=== PATIENT | male | born 2000 | race Caucasian/White ===

== ENCOUNTER 2022-03-26 16:10 | Day surgery (SDC) | payer SELFPAY ==
[~2022-03-26] VITALS: Ht 187 cm; Wt 81.6 kg
[2022-03-26] VITALS (8 sets, daily range): BP systolic 105–132; BP diastolic 63–84
[~2022-03-26 16:10] MED LIST: METH5SU. PO
[2022-03-26 16:58] LABS: CLARITY,URINE CLEAR; COLOR,URINE YELLOW; GLUCOSE, URINE (UA) NEGATIVE (NEGATIVE); KETONES,URINE 3+ (NEGATIVE); LEUKOCYTE ESTERASE ,URINE NEGATIVE (NEGATIVE); NITRITE,URINE NEGATIVE (NEGATIVE); PROTEIN,URINE 1+ (NEGATIVE)
[2022-03-26] MEDS ORDERED: NS IV 1000 ML 1,000 ML IV STA (17:17)
--- NOTE | 2022-03-26 17:22 | ED Abdominal Pain ---
General Chief Complaint: Abdominal/GI Problems Stated Complaint: RT SIDE ABD PAIN,NAUSEA,VOMITING Nursing Triage Note: PT AMB TO ED BY POV WITH C/O RLQ PAIN, N/V SINCE 010 TODAY. REPORTS HE HAS NOT BEEN ABLE TO KEEP ANYTHING DOWN TODAY. LAST BM THIS MORNING, NORMAL FOR PT. DENIES ANY DIFFICULTY URINATING OR FEVER. Source of Information: Patient Exam Limitations: No Limitations (SUZAN ADAMSON MD) History of Present Illness Date Seen by Provider: Mar 26, 2022 Time Seen by Provider: 17:12 Initial Comments Patient is a 21-year-old male who presents to the emergency department today with a chief complaint of right lower quadrant abdominal pain. Patient woke up with the pain this morning. It has gotten worse throughout the day. He feels a little bloated and gassy. He has had repeated bouts of nausea and vomiting. He has not had anything to eat or drink since yesterday. He does not drink alcohol. He states walking may intensify the pain just a little bit. He has not had a fever that he knows of. No diarrhea, last bowel movement was this morning and normal, nonblack nonbloody. No urinary complaints other than it may be a little "dark" today. No penile discharge or scrotal swelling or pain. He has never had any surgeries on his abdomen. No sick contacts that he is aware of. All other review of systems reviewed and negative except as stated Timing/Duration: 12 Hours Severity/Quality: Moderate ("8") Location: RLQ Radiation: No Radiation Activities at Onset: Sleeping Modifying Factors: Worsens With Movement Associated Symptoms: Nausea/Vomiting (SUZAN ADAMSON MD) Allergies and Home Medications Allergies Coded Allergies: No Known Drug Allergies (Unverified , 08/23/13) Patient Home Medication List Home Medication List Reviewed: Yes (SUZAN ADAMSON MD) Hydrocodone/Acetaminophen (Hydrocodone-Acetamin 7.5-325) 7.5 Mg-325 Mg Tablet, 1 EACH PO Q4H Prescribed by: RANDY AMANDA on 03/27/22 0409 Methylphenidate Hcl (Quillivant Xr) 5 Mg/1 Ml Dubois.er.[email or web address], 60 MG PO DAILY, (R eported) Entered as Reported by: MAEGAN SIN on 08/23/13 1120 Review of Systems Review of Systems Constitutional: see HPI EENTM: No Symptoms Reported Respiratory: No Symptoms Reported Cardiovascular: No Symptoms Reported Gastrointestinal: Abdominal Pain, Nausea, Vomiting Genitourinary: No Symptoms Reported Musculoskeletal: no symptoms reported Skin: no symptoms reported Psychiatric/Neurological: No Symptoms Reported (SUZAN ADAMSON MD) All Other Systems Reviewed Negative Unless Noted: Yes (SUZAN ADAMSON MD) Past Ulnxmsy-Yiurvl-Itqyff Hx Patient Social History Tobacco Use?: No Use of E-Cig and/or Vaping dev: Yes E-Cig or Vaping type used: Nicotine Substance use?: Yes Substance type: Marijuana Substance frequency: Daily Alcohol Use?: No Pt feels they are or have been: No (SUZAN ADAMSON MD) Immunizations Up To Date Influenza Vaccine Up-to-Date: No; Not Current (SUZAN ADAMSON MD) Past Medical History ADD/ADHD, Bipolar (SUZAN ADAMSON MD) Physical Exam Vital Signs Vital Signs - First Documented 03/26/22 16:30 Temp 36.9 Pulse 107 Resp 18 B/P (MAP) 171/76 (107) Pulse Ox 96 O2 Delivery Room Air (MEREDITH VASQUES MD) Vital Signs Capillary Refill : Less Than 3 Seconds (SUZAN ADAMSON MD) Height/Weight/BMI Height: 5'6" Weight: 86lbs. 2oz. [id number]; 23.00 BMI Method:Stated General Appearance: WD/WN, no apparent distress HEENT: PERRL/EOMI Neck: normal inspection Respiratory: lungs clear, normal breath sounds, no respiratory distress, no accessory muscle use Cardiovascular: regular rate, rhythm Gastrointestinal: abnormal bowel sounds (hypoactive BS), distended, tenderness (RLQ), other (negative ROvsing's) Extremities: normal range of motion, normal inspection Neurologic/Psychiatric: alert, normal mood/affect, oriented x 3 Skin: normal color, warm/dry (SUZAN ADAMSON MD) Progress/Results/Core Measures Results/Orders Lab Results Laboratory Tests Test 03/26/22 16:40 03/26/22 16:52 Range/Units White Blood Count 15.4 H 4.3-11.0 10^3/uL Red Blood Count 5.29 4.30-5.52 10^6/uL Hemoglobin 15.5 13.3-17.7 g/dL Hematocrit 45 40-54 % Mean Corpuscular Volume 85 80-99 fL Mean Corpuscular Hemoglobin 29 25-34 pg Mean Corpuscular Hemoglobin Concent 35 32-36 g/dL Red Cell Distribution Width 12.6 10.0-14.5 % Platelet Count 409 H 130-400 10^3/uL Mean Platelet Volume 9.1 9.0-12.2 fL Immature Granulocyte % (Auto) 1 % Neutrophils (%) (Auto) 83 H 42-75 % Lymphocytes (%) (Auto) 8 L 12-44 % Monocytes (%) (Auto) 7 0-12 % Eosinophils (%) (Auto) 1 0-10 % Basophils (%) (Auto) 0 0-10 % Neutrophils # (Auto) 12.9 H 1.8-7.8 10^3/uL Lymphocytes # (Auto) 1.3 1.0-4.0 10^3/uL Monocytes # (Auto) 1.1 H 0.0-1.0 10^3/uL Eosinophils # (Auto) 0.1 0.0-0.3 10^3/uL Basophils # (Auto) 0.0 0.0-0.1 10^3/uL Immature Granulocyte # (Auto) 0.1 0.0-0.1 10^3/uL Neutrophils % (Manual) 79 % Lymphocytes % (Manual) 13 % Monocytes % (Manual) 8 % Blood Morphology Comment NORMAL Sodium Level 142 135-145 MMOL/L Potassium Level 3.7 3.6-5.0 MMOL/L Chloride Level 105 98-107 MMOL/L Carbon Dioxide Level 25 21-32 MMOL/L Anion Gap 12 5-14 MMOL/L Blood Urea Nitrogen 11 7-18 MG/DL Creatinine 1.05 0.60-1.30 MG/DL Estimat Glomerular Filtration Rate 102 BUN/Creatinine Ratio 10 Glucose Level 104 70-105 MG/DL Calcium Level 10.3 H 8.5-10.1 MG/DL Urine Color YELLOW Urine Clarity CLEAR Urine pH 6.0 5-9 Urine Specific [place] 1.025 H 1.016-1.022 Urine Protein 1+ H NEGATIVE Urine Glucose (UA) NEGATIVE NEGATIVE Urine Ketones 3+ H NEGATIVE Urine Nitrite NEGATIVE NEGATIVE Urine Bilirubin 1+ H NEGATIVE Urine Urobilinogen 0.2 < = 1.0 MG/DL Urine Leukocyte Esterase NEGATIVE NEGATIVE Urine RBC (Auto) NEGATIVE NEGATIVE Urine RBC NONE /HPF Urine WBC 0-2 /HPF Urine Squamous Epithelial Cells RARE /HPF Urine Crystals NONE /LPF Urine Bacteria FEW H /HPF Urine Casts NONE /LPF Urine Mucus LARGE H /LPF Urine Culture Indicated YES (MEREDITH VASQUES MD) My Orders Orders - MEREDITH VASQUES MD Mrsa Screen (Icu,Preop,Cath) (03/26/22 18:52) Bupivacaine 0.25% W/Epi Inj (Marcaine 0. (03/26/22 19:25) Cefazolin Injection (Ancef Injection) (03/26/22 19:25) (MEREDITH VASQUES MD) Medications Given in ED Current Medications Medications Dose Ordered Sig/Leonila Route Start Time Stop Time Status Last Admin Dose Admin Bupivacaine HCl/ Epinephrine Bitart 30 ml STK-MED ONCE .ROUTE 03/26/22 19:25 03/26/22 19:28 DC 03/26/22 20:26 30 ML Cefazolin Sodium 1,000 ml @ ud STK-MED ONCE .ROUTE 03/26/22 19:25 03/26/22 19:28 DC 03/26/22 20:16 10 MLS/HR Lactated Ringer's 1,000 ml @ 0 mls/hr Q0M PRN IV 03/26/22 19:15 03/26/22 20:44 0 MLS/HR (MEREDITH VASQUES MD) Vital Signs/I&O 03/26/22 16:30 Temp 36.9 Pulse 107 Resp 18 B/P (MAP) 171/76 (107) Pulse Ox 96 O2 Delivery Room Air 03/27/22 00:00 Intake Total 1000 ml Balance 1000 ml (MEREDITH VASQUES MD) Blood Pressure Mean: 107 Progress Progress Note : Progress Note 1800: Assumed care of the patient from Dr. Adamson pending CT abdomen and pelvis to rule appendicitis. Monitor patient. 1844: CT abdomen pelvis does in fact show acute appendicitis. I did discuss the case with Dr. Lui. Patient has not ate or drank anything today. Dr. Lui has elected to go ahead and take him to the OR. This was discussed with patient and family who are in agreement. OR crew called in. (MEREDITH VASQUES MD) Departure Communication (Admissions) Time/Spoke to Admitting Phy: 18:44 (MEREDITH VASQUES MD) Impression Primary Impression: Appendicitis Qualified Codes: K35.30 - Acute appendicitis with localized peritonitis, without perforation or gangrene Disposition: ADMITTED INPATIENT Condition: Stable Admissions Decision to Admit Reason: Admit from ER (General) Decision to Admit/Date: Mar 26, 2022 Time/Decision to Admit Time: 18:44 (MEREDITH VASQUES MD) Departure-Patient Inst. Referrals: [facility] (PCP/Family) Primary Care Physician Scripts Hydrocodone/Acetaminophen (Hydrocodone-Acetamin 7.5-325) 7.5 Mg-325 Mg Tablet 1 EACH PO Q4H, #35 TAB Prov: BLANCA LUI MD 03/27/22 SUZAN ADAMSON MD Mar 26, 2022 17:22 MEREDITH VASQUES MD Mar 26, 2022 19:01
[2022-03-26 17:23] LABS: BASOPHILS % (AUTO) 0 % (0-10); EOSINOPHILS # (AUTO) 0.1 10^3/uL (0.0-0.3); EOSINOPHILS % (AUTO) 1 % (0-10); HEMATOCRIT 45 % (40-54); HEMOGLOBIN 15.5 g/dL (13.3-17.7); LYMPHOCYTES # (AUTO) 1.3 10^3/uL (1.0-4.0); LYMPHOCYTES % (AUTO) 8 % (12-44); MEAN CORPUSCULAR HEMOGLOBIN 29 pg (25-34); MEAN CORPUSCULAR HGB CONC 35 g/dL (32-36); MEAN CORPUSCULAR VOLUME 85 fL (80-99); MEAN PLATELET VOLUME 9.1 fL (9.0-12.2); MONOCYTES # (AUTO) 1.1 10^3/uL (0.0-1.0); MONOCYTES % (AUTO) 7 % (0-12); NEUTROPHILS # (AUTO) 12.9 10^3/uL (1.8-7.8); NEUTROPHILS % (AUTO) 83 % (42-75); PLATELET COUNT 409 10^3/uL (130-400); WHITE BLOOD COUNT 15.4 10^3/uL (4.3-11.0)
[2022-03-26 17:28] LABS: BACTERIA,URINE FEW /HPF; SQUAMOUS EPITHELIAL CELL,UR RARE /HPF; WBC,URINE 0-2 /HPF
[2022-03-26] MEDS ORDERED: fentaNYL INJ 100 MCG/2 ML AMP IVP ONE (17:30)
[2022-03-26] MEDS ORDERED: ONDANSETRON 4 MG/2 ML (SDV) Z0FRAN IVP ONE (17:30)
[2022-03-26 17:38] LABS: POTASSIUM 3.7 MMOL/L (3.6-5.0)
[2022-03-26 17:39] LABS: CALCIUM 10.3 MG/DL (8.5-10.1)
[2022-03-26 17:43] LABS: CREATININE SERUM 1.05 MG/DL (0.60-1.30)
[2022-03-26] MEDS ORDERED: IOHEXOL 350 MG/ML 100 ML (OMNIPAQUE 350) VIAL IV ONE (18:00)
[2022-03-26] MEDS ORDERED: NS 100 ML (IVPB) BAG IV ONE (18:00)
[2022-03-26 18:07] LABS: LYMPHOCYTES % (MANUAL) 13 %; MONOCYTES % (MANUAL) 8 %; NEUTROPHILS % (MANUAL) 79 %; RBC MORPH NORMAL
[2022-03-26] MEDS ORDERED: NS IV 1000 ML 1,000 ML IV SCH (18:15)
--- NOTE | 2022-03-26 18:32 | Diagnostic Imaging Report ---
PROCEDURE: CT abdomen and pelvis with contrast, rule out appendicitis. TECHNIQUE: Multiple contiguous axial images were obtained through the abdomen and pelvis after the administration of intravenous contrast. All CT scans use one or more of the following dose optimizing techniques: automated exposure control, MA and/or KvP adjustment based on patient size and exam type or iterative reconstruction. INDICATION: Right lower quadrant pain. FINDINGS: Lung bases are clear. Liver appears normal. Gallbladder appears normal. Pancreas appears normal. Spleen appears normal. Kidneys and adrenals appear normal. Small bowel is not dilated. The appendix is distended with surrounding induration. Colon is unremarkable. Urinary bladder is normal. Prostate is not enlarged. There is no intraperitoneal free air or free fluid. IMPRESSION: Acute appendicitis without evidence of perforation or abscess. Dictated by: Dictated on workstation # [id number]
[2022-03-26] MEDS ORDERED: MIDAZOLAM 2 MG/2 ML (VERSED) VIAL ONE (19:23)
[2022-03-26] MEDS ORDERED: fentaNYL INJ 100 MCG/2 ML AMP ONE (19:23)
[2022-03-26] MEDS ORDERED: BUP/EPI 0.25% 1:200,000 (MARCAINE) 30 ML VIAL ONE (19:25)
[2022-03-26] MEDS ORDERED: ceFAZolin INJECTION 1,000 MG ONE (19:25)
[2022-03-26] MEDS: LACTATED RINGERS 1,000 ML IV PRN ×2 (19:40→20:44)
--- NOTE | 2022-03-26 19:51 | Progress Note-Pre Operative ---
Pre-Operative Progress Note Date of Available H&P: Mar 26, 2022 Date H&P Reviewed: Mar 26, 2022 Time H&P Reviewed: 19:00 History & Physical: No changes noted Pre-Operative Diagnosis: acute appendicitis BLANCA LARA MD Mar 26, 2022 19:51
[2022-03-26] MEDS ORDERED: HYDR-3817 PO (19:53)
--- NOTE | 2022-03-26 19:53 | Discharge Inst-Surgical ---
D/C Lap Instructions-MARCO New, Converted, or Re-Newed RX: RX on Chart Follow Up Appt in 2 weeks Activity as tolerated No driving for 24 hours No driving while on pain medications Incentive Spirometry use every 2 hours while awake Regular Diet Symptoms to Report: Fever over 101 degree F, Nausea/Vomiting Infection Signs and Symptoms to report: Increased redness, Foul odor of wound, Increased drainage Bathing instructions: May shower Operative Area Clean/Dry; Keep incision clean/dry If any problems/questions: Contact your physician or go to Emergency Room BLANCA LARA MD Mar 26, 2022 19:53
[2022-03-26] MEDS ORDERED: ACETAMINOPHEN 325 MG TABLET PO PRN (20:00)
[2022-03-26] MEDS ORDERED: oxyCODONE/APAP 5/325MG (PERCOCET 5) TABLET PO PRN (20:00)
[2022-03-26] MEDS ORDERED: ONDANSETRON 4 MG/2 ML (SDV) Z0FRAN IVP PRN ×2 (20:00→21:30)
--- NOTE | 2022-03-26 20:09 | HISTORY AND PHYSICAL ---
ATTENDING MORTAR MAN: [facility]. HISTORY OF PRESENT ILLNESS: The patient is a 21-year-old male who presented to [facility] Emergency Department this evening for right lower abdominal quadrant pain that started in the morning. He reports that the pain worsened throughout the day. He also states that the characteristics of the pain were sharp in nature and movement would make this worse. He also reports associated anorexia with his pain; however, no nausea, no vomiting. He also states he has not had this type of symptoms before in the past. He has not had a bowel movement recently, however, the morning before he states that this was normal. A CT scan was performed, which did show inflammation of the appendix consistent with a noncomplicated appendicitis. PAST MEDICAL HISTORY: ADHD. PAST SURGICAL HISTORY: None. ALLERGIES: No known drug allergies. MEDICATIONS: Methylphenidate 60 mg daily. SOCIAL HISTORY: Positive for vaping as well as marijuana. No alcohol. FAMILY HISTORY: Noncontributory. VITAL SIGNS: Temperature 36.9, blood pressure 171/76, pulse 107, respirations 18, pulse ox 96% on room air. REVIEW OF SYSTEMS: Well-nourished male, currently in no acute distress. He is not experiencing any shortness of breath or difficulty breathing. No chest pain, palpitations, diaphoresis. No nausea or vomiting. No diarrhea, constipation; however, he has not had an appetite. No fever or chills. No recent inadvertent weight loss. All other review of systems negative. PHYSICAL EXAM: CHEST: Clear. Good breath sounds bilaterally. HEART: Regular, no murmurs. EXTREMITIES: No lower extremity edema. Negative Homans sign. HEENT: No scleral icterus. No cervical lymphadenopathy. ABDOMEN: Soft, nondistended. There is pain in the right lower abdominal quadrant at McBurney's point with voluntary guarding, no rebound. No hernias. SKIN: Warm and dry. LABORATORY DATA: WBC 15.4, hemoglobin 15.5, hematocrit 45, platelets 409, BUN 11, creatinine 1.05. ASSESSMENT AND PLAN: A 21-year-old male with a noncomplicated acute appendicitis. The natural history of this disease process was explained to the patient including the risks and benefits of surgery and he is in full understanding of this and would like to proceed with a diagnostic laparoscopy as well as a laparoscopic appendectomy, which we will schedule. Job ID: [id number] DocumentID: [id number] Dictated Date: 03/26/2022 19:51:06 Slack Cooper Date: 03/26/2022 20:07:00 Dictated By: BLANCA LARA MD
[2022-03-26] MEDS ORDERED: ROCURONIUM 10 MG/ML 5 ML SYRINGE IV ONE (20:42)
[2022-03-26] MEDS ORDERED: LIDOCAINE PF 2% 5 ML (XYLOCAINE) VIAL ONE (20:42)
[2022-03-26] MEDS ORDERED: KETOROLAC 30 MG/ML VIAL ONE (20:42)
[2022-03-26] MEDS ORDERED: proPOfol 200 MG/20 ML (DIPRIVAN) VIAL IV ONE (20:42)
[2022-03-26] MEDS ORDERED: ONDANSETRON 4 MG/2 ML (SDV) Z0FRAN ONE (20:42)
[2022-03-26] MEDS ORDERED: SEVOFLURANE (ULTANE) 15 ML INHAL SOLN ONE (20:46)
[2022-03-26] MEDS ORDERED: NEOSTIGMINE (BLOXIVERZ ) 1 MG/1ML 10 ML VIAL ONE (20:46)
[2022-03-26] MEDS ORDERED: GLYCOPYRROLATE 0.2 MG/ML (ROBINUL) 2 ML VIAL ONE (20:46)
--- NOTE | 2022-03-26 20:51 | Progress Note-Post Operative ---
Post-Operative Progess Note Surgeon (s)/Manager Media Relations (s) Surgeon BLANCA LARA MD Manager Media Relations: none Pre-Operative Diagnosis acute appendicitis Post-Operative Diagnosis same Procedure & Operative Findings Date of Procedure 03/26/22 Procedure Performed/Findings laparoscopic appendectomy. Anesthesia Type get Estimated Blood Loss Estimated blood loss (mL): minimal Specimens/Packing Specimens Removed appendix BLANCA LARA MD Mar 26, 2022 20:51
[2022-03-26] MEDS ORDERED: morphine INJ 10 MG/ML 1ML (SYR OR VIAL) ONE (20:52)
--- NOTE | 2022-03-26 21:28 | Anesthesia-General Post-Op ---
General Patient Condition Mental Status/LOC: Same as Preop Cardiovascular: Satisfactory Nausea/Vomiting: Absent Respiratory: Satisfactory Pain: Controlled Complications: Absent Post Op Complications Complications None Follow Up Care/Instructions Patient Instructions None needed. Anesthesia/Patient Condition Patient Condition Patient is doing well, no complaints, stable vital signs, no apparent adverse anesthesia problems. No complications reported per nursing. PARISH SHERMAN CRNA Mar 26, 2022 21:28
[2022-03-26] MEDS ORDERED: MEPERIDINE (DEMEROL) INJ 50 MG/ML IVP ONE (21:30)
[2022-03-26] MEDS ORDERED: morphine INJ 10 MG/ML 1ML (SYR OR VIAL) IVP ONE (21:30)
[2022-03-26] MEDS ORDERED: morphine INJ 10 MG/ML 1ML (SYR OR VIAL) IVP PRN (22:15)
[2022-03-26] MEDS: morphine INJ 10 MG/ML 1ML (SYR OR VIAL) IVP PRN (22:36)
[2022-03-27] MEDS: morphine INJ 10 MG/ML 1ML (SYR OR VIAL) IVP PRN (02:55)
[2022-03-27 03:52] VITALS: BP 116/72
[2022-03-27] MEDS ORDERED: HYDR-3817 PO (04:09)
--- NOTE | 2022-03-27 06:04 | OPERATIVE REPORT ---
DATE OF SERVICE: 03/26/2022 ATTENDING DECKHAND ENGINEER: [facility]. PREOPERATIVE DIAGNOSIS: Acute appendicitis. POSTOPERATIVE DIAGNOSIS: Acute appendicitis. PROCEDURE: Laparoscopic appendectomy. SURGEON: Blanca Lara MD. ANESTHESIA: General endotracheal. ESTIMATED BLOOD LOSS: Minimal. FINDINGS: Inflamed appendix, no perforation. Small bowel, omentum appeared normal. DISPOSITION: The patient tolerated the procedure well. INDICATIONS: The patient is a 21-year-old male, who presented to [facility] Emergency Department this evening with right lower abdominal quadrant pain that started in the morning. He reports that the pain worsened throughout the day and the pain was sharp in quality and movements would make this worse. He also had reported anorexia with the pain; however, no nausea, no vomiting. He also does not report having this type of pain before in the past. He states that he had a bowel movement the day previous. He does not report any diarrhea as well as no red blood per rectum, nor any dark tarry stools. A CT scan was performed, which did show inflammation of the appendix consistent with a noncomplicated appendicitis. DESCRIPTION OF PROCEDURE: The patient was brought to the operating room, laid supine on the table. After adequate IV pain and sedative medications and general endotracheal intubation, the abdomen was prepped and draped in standard surgical fashion. A 0.5% Marcaine with epinephrine was used to anesthetize the overlying skin in the left upper abdominal quadrant and transverse skin incision was made using a #15 blade. An 0 silk suture was applied to the medial aspect of the incision for retraction. Veress needle inserted with a low opening pressure of 0 mmHg and the abdomen was then insufflated to 15 mmHg pressure. The Veress needle was removed and a 5 mm XL trocar placed followed by a 5 mm 45-degree angle laparoscope visualized in the peritoneal cavity. A 4-quadrant abdominal exploration was performed. There was an inflamed appendix with no perforation. The remainder of the small bowel and omentum and what was visualized of the colon was normal. Under direct visualization, we then proceeded with a supraumbilical 10 mm port after the skin and peritoneal lining were anesthetized using 0.5% Marcaine with epinephrine and a transverse skin incision made using a #15 blade. In a similar manner, a suprapubic 5 mm port was placed. The patient was then placed in Trendelenburg position as well as planed right side up, left side down. The appendix was then retracted towards the anterior abdominal wall. The connective tissue fibers of the mesoappendix were then taken down using blunt dissection as well as electrocautery on the hook instrument. We were able to staple and transect both the mesoappendix as well as the appendix at the cecal base with a 2.5 mm thickness 45 mm stapler with visualization with good hemostasis. The appendix was removed through the 10 mm port site using an EndoCatch bag. The area was then irrigated and suctioned out with visualization and good hemostasis. The 10 mm port site fascia and peritoneum were then closed under direct visualization using a Jon-Amy device and 0 Vicryl suture. The abdomen was then desufflated and the remaining ports were removed. All skin incisions were closed using 4-0 Monocryl running subcuticular sutures. Wounds were then cleaned and covered with Dermabond. The patient tolerated the procedure well. Once he was tolerating clears with good pain control with oral pain medications, ambulating well, we will discharge him home where he will be instructed with no heavy lifting or exertion for the next 2 weeks. Job ID: [id number] DocumentID: [id number] Dictated Date: 03/26/2022 20:57:36 Cylinder Filler Date: 03/27/2022 06:02:00 Dictated By: BLANCA LARA MD
[2022-03-27 07:30] VITALS: BP 100/60
[2022-03-27 12:01] LABS: BILIRUBIN,URINE 1+ (NEGATIVE)
== END 2022-03-27 09:51 | disposition home or self-care (01) ==
LOC: EDUNIT# 16:10 → ER 16:13 → 4TH 21:50 → ER 21:50 → UNDOADMOB 21:50 → SDC 21:50 → 4TH 21:50 → ER 22:04 → 4TH 22:04 → SDC 03-27 09:51 → UNDODISOB 03-27 09:51
PROVIDERS: ATTEND Surgery
DX: K35.30 Acute appendicitis with localized peritonitis, without perforation or gangrene (principal)
CPT/HCPCS: 36415; 74177; 80048; 81000; 85007; 85027; 87081; 87088; 94664; 96375; 96376